=== PATIENT | female | born 1995 | race Two or more races ===

== ENCOUNTER 2016-07-01 08:43 | Emergency (ER) | payer OTHER ==
--- NOTE | 2016-07-01 10:32 | ED ---
Laceration/Wound HPI - HPI Summary HPI Summary: Patient was running last night when she tripped and fell, hitting her chin on the ground. Alcohol was involved. She denies LOC, JOYNER, neck pain or vomiting. She did hit the inside of her lower lip but suffered only a small abrasion. Her teeth are not sore or loose. She did suffer a cut to her chin that she dressed with a bandaid. Her tetanus is up to date. - History of Current Complaint Stated Complaint: CHIN LAC Time Seen by Provider: 07/01/16 09:00 Hx Obtained From: Patient Mechanism of Injury: Sharp/Blunt Trauma Onset/Duration: Sudden Onset Aggravating: Movement Alleviating: Compression Timing: Constant Onset Severity: Severe Current Severity: Moderate Pain Intensity: 5 Associated Signs & Symptoms: Pain - Allergy/Home Medications Allergies/Adverse Reactions: Allergies Allergy/AdvReac Type Severity Reaction Status Date / Time No Known Allergies Allergy Verified 07/01/16 08:57 PMH/Surg Hx/FS Hx/Imm Hx Neurological History: Reports: Hx Headaches Infectious Disease History: No Infectious Disease History: Denies: Traveled Outside the [place] in Last 30 Days - Family History Known Family History: Positive: None - Social History Occupation: Student Lives: Shelter - apartment with room mates Alcohol Use: Occasionally Substance Use Type: Reports: None Smoking Status (MU): Never Smoked Tobacco Review of Systems Negative: Photophobia, Blurred Vision Positive: Edema - chin Positive: Bruising - chin, Other - 2 cm laceration to chin Negative: Headache, Paresthesia, Numbness All Other Systems Reviewed And Are Negative: Yes Physical Exam Triage Information Reviewed: Yes Vital Signs On Initial Exam: Initial Vitals Temp Pulse Resp BP Pulse Ox 98.4 F 91 16 112/86 100 07/01/16 08:45 07/01/16 08:45 07/01/16 08:45 07/01/16 08:45 07/01/16 08:45 Vital Signs Reviewed: Yes Appearance: Positive: Well-Appearing, No Pain Distress, Well-Nourished Skin: Positive: Warm, Skin Color Reflects Adequate Perfusion, Dry, Tender - 2 cm laceration to chin, Soft Head/Face: Positive: Normal Head/Face Inspection Eyes: Positive: EOMI, YOCASTA, Conjunctiva Clear ENT: Positive: Hearing grossly normal, Pharynx normal Dental: Negative: Percussion Tenderness @, Dental Fracture @ Neck: Positive: Supple, Nontender Respiratory/Lung Sounds: Positive: Breath Sounds Present Cardiovascular: Positive: RRR Musculoskeletal: Positive: Strength/ROM Intact. Negative: Edema Left, Edema Right Neurological: Positive: Sensory/Motor Intact, Alert, Oriented to Person Place, Time, CN Intact II-III - grossly, NV Bundle Intact Distally, Normal Gait Psychiatric: Positive: Affect/Mood Appropriate AVPU Assessment: Alert Procedures - Laceration/Wound Repair 1 Location: face - chin Description: Linear Anesthesia: Local, 2.0%, Lido Length, Depth and Shape: 2 cm long, 7mm wide, 5mm deep Betadine Prep?: No Irrigated w/ Saline (ccs): 200 Laceration/Wound Explored: clean Closure: Multilayer Debridement: minimal Suture Type: Nylon - 6.0, 10 stitches, Vicryl - 4.0, 3 stitches Number of Sutures: 13 Layer Closure?: Yes Sterile Dressing Applied?: Yes Diagnostics - Vital Signs Vital Signs Temp Pulse Resp BP Pulse Ox 07/01/16 08:45 98.4 F 91 16 112/86 100 - Laboratory Lab Statement: Any lab studies that have been ordered have been reviewed, and results considered in the medical decision making process. Laceration Repair Course/Dx - Differential Dx Differental Diagnoses: Abrasion, Avulsion, Dehiscence, Hematoma, Laceration, Puncture Wound - Clinical Impression Provider Diagnoses: Laceration of chin Discharge - Discharge Plan Condition: Stable Disposition: HOME Patient Education Materials: Facial Laceration (ED) Referrals: [facility] MEG Garber [Primary Care Provider] - Additional Instructions: Keep your dressing clean, dry and in place for the next 24 hours. You may then remove and shower. Pat dry and cover with a clean, dry band-aid if you are going to be in a "dirty" environment, otherwise it can remain open to air. Do not soak the wound in any body of water until the sutures are removed. Elevate your head above your heart and use Ibuprofen 600mg three times daily with meals for the next 3-5 days to reduce pain and swelling. Follow-up with Meg in 5 days for suture removal. Return to the emergency department sooner if your symptoms worsen.
[2016-07-01 10:37] VITALS: BP 105/57
== END 2016-07-01 10:33 | disposition home or self-care (01) ==
LOC: ED 08:43
DX: S01.81XA Laceration without foreign body of other part of head, initial encounter (principal); W18.09XA Striking against other object with subsequent fall, initial encounter; Y93.02 Activity, running; Y92.9 Unspecified place or not applicable
CPT/HCPCS: 12011; 99281